=== PATIENT | female | born 1955 | race Caucasian/White ===

== ENCOUNTER 2018-08-28 20:08 | Inpatient (IN) | payer OTHER ==
[~2018-08-28] VITALS: Ht 165.1 cm; Wt 56.4 kg
--- NOTE | ~2018-08-28 | HC ---
[facility] [place] [address] CONSULTATION Name: KAMLA MATHEWS Room #: 244-P ADM IN M.R.#: [id number] Admission: 08/28/18 ������������������ Attend Phys: Mikey Gibbs MD Discharge: ������������������ Date of : 53 Report #: [id number] THIS REPORT FOR: //name// CC: FAM unknown Mikey Gibbs PULMONARY CONSULTATION REFERRAL PHYSICIAN: Dr. Ballard. REASON FOR REFERRAL: Respiratory failure. HISTORY OF PRESENT ILLNESS: The patient was transferred from [facility] with an apparent acute onset respiratory failure and GI bleed. A pulmonary consultation was requested. The patient was apparently found down at home by her son. She was seen on the floor in the bathroom. She was cyanotic, tachycardic, restless. 911 was called. She was taken to the Emergency Department. Initial arterial blood gas in the ED showed pH 7.02, pCO2 of 25, pO2 550. Prior to this, she had a recent onset of intermittent lower abdominal pain, nausea, vomiting. There was also history of diarrhea. Currently, she is status post EGD. She is arousable. She says she feels better. She notes that she had abdominal discomfort, which has improved. PAST MEDICAL HISTORY: Notable for COPD, tobacco abuse, hypertension, gastroesophageal reflux disease, hypothyroidism, chronic low back pain, hyperlipidemia, history of small-bowel obstruction undergone colon resection, history of nephrolithiasis, history of intra-abdominal sepsis and adhesions, history of gastric ulcer perforation, history of respiratory failure requiring intubation approximately 4 years ago. PAST SURGICAL HISTORY: As mentioned above including cholecystectomy, appendectomy, hysterectomy. ALLERGIES: WELLBUTRIN, WHICH CAUSES UPPER AIRWAY EDEMA AND VOMITING, CEPHALOSPORIN CAUSES SAME REACTION, CLONAZEPAM CAUSES LOSS OF BALANCE, CODEINE CAUSES VOMITING. HOME MEDICATIONS: Include DuoNebs, Advair 250 one puff twice a day, Synthroid, omeprazole, Flonase, multivitamins, hydrocodone, senna, potassium supplements, Spiriva, Diflucan, minocycline, metoprolol, Prozac, simvastatin. FAMILY HISTORY: Noncontributory. [facility] [address] [place] [address] CONSULTATION Name: KAMLA MATHEWS Room #: 244-P [facility] IN [facility].#: [id number] Admission: 08/28/18 ������������������ Attend Phys: Mikey Gibbs MD Discharge: ������������������ Date of : 53 Report #: [id number] SOCIAL HISTORY: The patient has smoked for many years, quit more than a year ago. She also smoked marijuana. She denies any alcohol use. REVIEW OF SYSTEMS: As mentioned above, otherwise 10-point system review negative. PHYSICAL EXAMINATION: GENERAL: She is awake, alert, in mild distress. VITAL SIGNS: Temperature is 99 degrees Fahrenheit, pulse is 120, blood pressure is 106/67 mmHg, respiratory rate 22, saturation 99%. HEENT: Normocephalic, atraumatic. NECK: Supple, without lymphadenopathy or thyromegaly. CHEST: Breath sounds are fairly clear. Air movements are decreased due to poor effort. CARDIOVASCULAR: Normal S1, S2. No murmurs or gallop. There is no JVD. There is no carotid bruit. Pulses are 2+/4+ bilaterally. ABDOMEN: Soft, mildly tender, no masses felt. GENITOURINARY AND RECTAL: Deferred. EXTREMITIES: There is no edema, cyanosis, or clubbing. NEUROLOGICAL: Grossly intact. LABORATORY DATA: Portable chest x-ray is clear. Lactic acid 2.6. CT abdomen and pelvis shows a fluid filled stomach, fluid filled small bowel. No evidence of pneumatosis or high grade obstruction, mild hydronephrosis on the right. Otherwise, no other significant findings. Urine drug screen was unremarkable. UA was unremarkable. Procalcitonin level is 22. EKG shows sinus tachycardia. Electrolytes: Initial creatinine is 1.6, followup is 0.9; sodium 141; potassium 3.6; chloride 109; CO2 is 20; BUN is 35; follow up bicarbonate 17. Initial arterial blood gas revealed pH 7.29, pCO2 29, pO2 171 on 5 liters of O2. WBC 18,300; hemoglobin 16.1 without any significant left shift. Albumin 2.6. IMPRESSION: 1. Recent nausea, vomiting, diarrhea, question of gastrointestinal bleed. Etiology unclear, but suspect possible viral syndrome. GI to see. There is also question of gastrointestinal bleed, though hemoglobin is 16.6. 2. Initial arterial blood gas performed at [facility] shows profound metabolic acidosis with a pH of 7.02. Followup arterial blood gas shows improved pH of 7.29. Repeat electrolytes show worsening metabolic acidosis, now bicarbonate 17. There is mild anion gap. 3. History of chronic obstructive pulmonary disease, history of tobacco use. No obvious evidence of bronchospasm. Continue bronchodilators. She is apparently on chronic O2 at home. 4. Hypertension. 5. Gastroesophageal reflux disease. 6. Hypothyroidism. 7. Chronic back pain. [facility] [address] [place] [address] CONSULTATION Name: KAMLA MATHEWS Room #: 244-P [facility] IN M.R.#: [id number] Admission: 08/28/18 ������������������ Attend Phys: Mikey Gibbs MD Discharge: ������������������ Date of : 53 Report #: [id number] 8. Past history of bowel obstruction, status post bowel resection remotely. RECOMMENDATIONS: We will initiate bronchodilators, wean O2 for saturation of 90%. Currently, the patient is being evaluated by the GI. DVT and GI prophylaxis recommended. IV fluids. With leukocytosis, transient hypotension, organ dysfunction including severe metabolic acidosis, the patient does meet the criteria for severe sepsis; however, she appeared to have responded well to IV fluids, IV bicarbonate. I think it is reasonable to hold off on sepsis protocol at this time. Continue IV bicarbonate, IV fluids and monitor urine output closely. Thank you for this consultation. ��������������������������������������������� ���������������������������������������� By: ��������������������������������������������� 07 0450 Singh Wagoner MD /nt
[~2018-08-28 20:08] MED LIST: ACETAMINOPHEN325 M1 PO; ADVAIR 250-501 EACH INH; ALBUTEROL2.5 MG/0.5 INH; ALBUTEROL2.5 MG/31 INH; ALDACTONE25 MG PO; ASPIRIN81 M2; CENTRUM SILVER1 EAC4 PO; COLACE100 MG PO; COMBIVENT RESPIM4 GM INH; DIFLUCAN200 MG PO; FLAGYL500 MG PO; FLONASE16 GM NASAL; LEVAQUIN 500 M500 M2 PO; LEVOTHYROXIN0.112 M1 PO; MAGNESIUM OXID400 MG PO; METOPROLOL SUCC25 M1 PO; MINOCIN100 MG PO; NAPROSYN500 MG PO; NICOTINE TRANSD14 M1 TRANSDERM; NORCO 5-325 TA1 EACH PO; NYSTATIN 1100000 U/M PO; ONDANSETRON HCL4 M2; ONDANSETRON HCL4 M2 PO; POTASSIUM20 PO; PREDNISONE 10 M10 M1; PRILOSEC 20 MG20 MG PO; PROZAC 20 MG20 MG PO; PROZAC40 MG PO; SENOKOT-S1 TA1 PO; SPIRIVA INH; TRAMADOL 50 MG50 MG PO; TRAZODONE 150150 M1 PO; TUMS PO; VISTARIL 25 MG25 M1 PO; ZOCOR40 MG PO
--- NOTE | 2018-08-28 22:50 | NUR ---
63 Y/O FEMALE PT ADMITTED TO ICU A DIRECT ADMIT FROM [facility] VIA EMS WITH DX OF RESP FAILURE GI BLEED. CURRENTLY ON BIPAP. SINUS TACH PT ONLY REQUESTING ICE CHIPS. HAS A MOD AMT FOUL SMELLINGS STOOL ON CHUX. WILL CONT TO MONITOR.
[2018-08-28 23:12] VITALS: BP 103/56
[2018-08-28 23:27] VITALS: BP 120/78
[2018-08-28 23:28] LABS: BE(vivo) -10.9 mmol/L (-2 to +3); HCO3 13.9 mmol/L (22.0-26.0); PCO2 29.1 mmHg (35.0-45.0); PO2 171.7 mmHg (80.0-100.0); pH 7.296 (7.360-7.450)
[2018-08-28 23:42] VITALS: BP 100/79
[2018-08-28 23:59] VITALS: BP 116/74
[2018-08-29] VITALS (35 sets, daily range): BP systolic 85–144; BP diastolic 35–77
[2018-08-29 03:42] LABS: ALBUMIN 2.6 g/dL (3.4-5.0); CALCIUM 8.1 mg/dL (8.5-10.1); CREATININE 1.6 mg/dL (0.6-1.0); POTASSIUM 3.6 mmol/L (3.5-5.1); TOTAL BILIRUBIN 0.5 mg/dL (<0.1-1.0); TOTAL PROTEIN 5.5 g/dL (6.4-8.2)
[2018-08-29 05:11] LABS: HEMATOCRIT 49.7 % (37.0-47.0); HEMOGLOBIN 16.6 gm/dL (12.0-15.0); MCH 31.7 pg (26.0-34.0); MCHC 33.4 g/dL (28.0-37.0); MCV 94.8 fL (80.0-100.0); RBC 5.24 mil/uL (4.20-5.00); RDW 13.1 % (10.5-14.5); WBC 18.3 thou/uL (4.0-11.0)
--- NOTE | 2018-08-29 06:00 | NUR ---
PT IS AWAKE AND ALERT. VSS LUNGS ESS CLEAR. MONITOR SHOWS SINUS TACH LUNGS ESS CLEAR. O2 SAT 3 LITERS. PT HAD 2 LARGE PINK TINGED WATTERY LIQUID STOOLS. PROTONIX GTT INFUSING WENT TO CAT SCAN FOR CT OF ABD AND PELVIS LEMUEL FEW ICE CHIPS DENIES PAIN NOR NAUSEA. PT DID REFUSE TO WEAR BIPAP LAST NOCT. 800 CC UO THIS SHIFT. DR COREA GI CONSULTED THIS AM. WILL CONT TO MONITOR CLOSELY.
[2018-08-29 10:57] LABS: URINE BILIRUBIN NEGATIVE (Negative); URINE BLOOD 2+ (Negative); URINE CLARITY CLEAR; URINE COLOR YELLOW; URINE GLUCOSE-RANDOM* NEGATIVE (Negative); URINE KETONES NEGATIVE (Negative); URINE LEUKOCYTES-REFLEX NEGATIVE (Negative); URINE NITRITE-REFLEX NEGATIVE (Negative); URINE PROTEIN (DIPSTICK) NEGATIVE (Negative); URINE SPECIFIC GRAVITY >= 1.030 (1.005-1.035); URINE UROBILINOGEN 0.2 E.U./dl (0.2-1.0)
[2018-08-29 11:06] LABS: AMP/METHAMP Negative (Negative); BARBITURATES Negative (Negative); BENZODIAZEPINES Negative (Negative); COCAINE Negative (Negative); METHADONE Negative (Negative); OPIATES Negative (Negative); PCP Negative (Negative)
[2018-08-29 11:08] LABS: BACTERIA-REFLEX None Seen /HPF (None Seen); CASTS None Seen /LPF (None Seen); CRYSTALS None Seen /LPF (None Seen); SQUAMOUS 0-3 Few /LPF (0-3); URINE RBC 3-10 Few /HPF (0-2); URINE WBC-REFLEX None Seen /HPF (0-5)
--- NOTE | 2018-08-29 14:47 | NUR ---
CM ASSESSMENT: CASE OPENED FOR DC PLANNING. CLINICAL INFO REVIEWED. ADMITTED WITH GI BLD. EGD TODAY AND COLONOSCOPY TOMORROW PLANNED. MET WITH PT WHO IS ALERT AND ORIENTED X4. PT LIVES IN [place], [place]. IN HOUSE, 4 STEPS TO ENTER WITH RAIL, NO STEPS INSIDE. INDEPENDENT WITH ADLS AND IADLS, HAS VEHICLE AND DRIVES. 2 SONS AND HER MOTHER LIVE NEAR BY. PT HAS HOME O2 CONCNETRATOR AND PORTABLE CONCNETRATOR FROM [employer] AND NEBULIZER SHE OWNS. PCP IS LEW SIERRA. THERAPY EVALS PENDING. PT THINKS SHE WON'T NEED ANYTHING AT DC. CM AVAILABLE TO COORDINATE ANY DC NEEDS.
[2018-08-29 16:18] LABS: CALCIUM 7.3 mg/dL (8.5-10.1); CREATININE 0.9 mg/dL (0.6-1.0); POTASSIUM 4.3 mmol/L (3.5-5.1)
--- NOTE | 2018-08-29 17:10 | EKG ---
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 Officer: BERNARD WALKER : 1955 Requested By: Marlen López Order Number: [id number] MD: Yrn Chowdhury Measurements Intervals [place] Rate: 117 P: 77 [place]: 124 QRS: 18 QRSD: 73 T: 52 QT: 301 QTc: 420 Interpretive Statements Sinus tachycardia Nonspecific ST segment abnormality Compared to ECG 06/14/2013 06:50:37 Poor R wave progression no longer present ST and T wave abnormality is less pronounced Electronically Signed On 08-29-2018 17:10:41 CDT by Yrn Chowdhury [email or web address] ��������������������������������������������� <ELECTRONICALLY SIGNED> ���������������������������������������� By: Yrn Chowdhury MD, FACC ��������������������������������������������� 08/29/18 1710 1117 [id number] Yrn Chowdhury MD, [facility] /EPI
--- NOTE | 2018-08-29 18:17 | NUR ---
PATIENT ALERT AND ORIENTED X4, NO COMPLAINTS OF PAIN. 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 ON 2L NASAL CANNULA, TOLERATING CLEAR LIQUID DIET. KHAN PATENT AND DRAINING. PATIENT UPDATED ON THE PLAN OF CARE. BOWEL PREP STARTED AT 1800. NO SIGNS OF ACUTE DISTRESS NOTED AT THIS TIME. WILL CONTINUE TO MONITOR.
[2018-08-30] VITALS (19 sets, daily range): BP systolic 135–162; BP diastolic 65–87
[2018-08-30 05:17] LABS: HEMATOCRIT 35.8 % (37.0-47.0); MCH 31.5 pg (26.0-34.0); MCHC 34.3 g/dL (28.0-37.0); RBC 3.89 mil/uL (4.20-5.00); WBC 12.3 thou/uL (4.0-11.0)
[2018-08-30 05:22] LABS: HEMOGLOBIN 12.3 gm/dL (12.0-15.0)
[2018-08-30 05:23] LABS: CALCIUM 7.4 mg/dL (8.5-10.1); CREATININE 0.8 mg/dL (0.6-1.0)
[2018-08-30 05:27] LABS: POTASSIUM 3.3 mmol/L (3.5-5.1)
--- NOTE | 2018-08-30 05:30 | NUR ---
PT HAS SLEPT MOST OF NOCT. TOOK APPROX HALF OF HER BOWEL PREP. REFUSED TO TAKE ANYMORE. HAD APPROX 700 CC CLEAR WATERY LIQUID STOOL. 1200 CC URINE OUTPUT THIS SHIFT. REMAINS IN SINUS TACH. TEMP 99.2 PO LUNGS ESS CLEAR. O2 SAT 97 % ON 2 L NC. BATHED. NPO FOR COLONOSOCPY THIS AM. WILL CONT TO MONITOR.
--- NOTE | 2018-08-30 18:11 | NUR ---
PATIENT ALERT AND ORIENTED X4, NO COMPLAINTS OF PAIN. ON ROOM AIR, SHORTNESS OF BREATH WITH INCREASED ACTIVITY. 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 TOLERATING FULL LIQUID DIET, NO COMPLAINTS OF NAUSEA/VOMITING. KHAN REMOVED AT 1400. PATIENT WALKED HALLWAY WITH PHYSICAL THERAPY. UP WITH STANDBY ASSISTANCE. NO SIGNS OF DISTRESS NOTED, WILL CONTINUE TO MONITOR.
[2018-08-31] VITALS (10 sets, daily range): BP systolic 120–147; BP diastolic 57–76
--- NOTE | 2018-08-31 05:02 | NUR ---
PT AOX4. ON 2L NC AT NIGHT FOR SLEEP. NO RESP DISTRESS WHILE AT REST. C/O ABD PAIN, MEDICATED PER ORDERS. UP WITH STANDBY TO BATHROOM. PT CALLS APPROPIATELY. FALL PRECAUTIONS IN PLACE. NO COMPLAINS PRESENTLY. WILL CONTINUE TO MONITOR.
[2018-08-31 07:57] LABS: MCHC 35.1 g/dL (28.0-37.0); WBC 10.5 thou/uL (4.0-11.0)
[2018-08-31 07:59] LABS: HEMATOCRIT 33.1 % (37.0-47.0); HEMOGLOBIN 11.6 gm/dL (12.0-15.0); MCH 32.1 pg (26.0-34.0); MCV 91.6 fL (80.0-100.0); PLATELET COUNT 170 thou/uL (150-400); RBC 3.61 mil/uL (4.20-5.00); RDW 13.4 % (10.5-14.5)
[2018-08-31 08:01] LABS: HCO3 24.1 mmol/L (22.0-26.0); PCO2 33.6 mmHg (35.0-45.0); pH 7.474 (7.360-7.450); sO2 97.1 % (92.0-98.0)
[2018-08-31 08:06] LABS: CALCIUM 7.7 mg/dL (8.5-10.1); CREATININE 0.6 mg/dL (0.6-1.0); POTASSIUM 3.3 mmol/L (3.5-5.1)
[2018-08-31 10:45] LABS: ABSOLUTE NEUTROPHILS 8.9 thou/uL (1.4-8.2); METAMYELOCYTES 3 %
[2018-08-31 10:46] LABS: PLATELET ESTIMATE NORMAL
[2018-08-31] MEDS ORDERED: PREDNISONE 20 M20 M1 PO (14:31)
[2018-08-31] MEDS ORDERED: LEVAQUIN 500 M500 M1 PO (14:31)
--- NOTE | 2018-08-31 15:27 | NUR ---
PT. DISCHARGING TODAY TO HOME WITH HH. NOTIFIED [facility] AND FAXED REFERRAL AND THEY WILL BE ABLE TO ACCEPT PT. FOR HH. FAXED DC ORDERS/SUMMARY AND SPOKE WITH ANITA IN ADM. AND SHE WILL NOTIFY PT. OF TIME OF VISITS.
--- NOTE | 2018-08-31 15:49 | NUR ---
PATIENT ALERT AND ORIENTED X4, NO COMPLAINTS OF PAIN. ON ROOM AIR. UP INDEPENDENTLY. IV REMOVED. PRESCRIPTIONS GIVEN, DISCHARGE INSTRUCTIONS DISCUSSED ALONG WITH FOLLOW UP APPOINTMENTS. NO SIGNS OF ACUTE DISTRESS NOTED AT THIS TIME. PATIENT TRANSPORTED BY STAFF TO RIDE HOME WITH FAMILY.
--- NOTE | 2018-09-01 10:06 | PATH ---
[facility] [place] [address] PATHOLOGY RPT PROCEDURE Name: CASIE BROWN Room #: 244-P [facility] IN M.R.#: [id number] ������������������ Admission: 08/28/18 ������������������ Date of : 53 Discharge: 08/31/18 Report #: [id number] Path Case #: [id number] [facility] Accession Number: [id number] . 01 Material submitted: . PART A: BX ILEUM INFLAMMATION PART B: BX POLYP SPLENIC FLEXURE . 01 Clinical history: . Preop DX: GI bleed Postop DX: Ileal inflammation, colon polyp, int hemorrhoids . 02 Diagnosis: A. Small bowel mucosa, ileal inflammation, endoscopic biopsy: - Focal ulceration, regenerative epithelial atypia as well as fibrotic lamina propria, favor ischemic changes (please see comment). - Negative for dysplasia or malignancy. . B. Polyp, splenic flexure, endoscopic biopsy: - Tubular adenoma. - Negative for high-grade dysplasia. (IUV:donnie; 08/31/2018) QMS/08/31/2018 . 02 Comment: Examination of the ileal inflammation shows focal surface ulceration, denuded surface epithelium, regenerative changes within the adjacent epithelium as well as crypts in addition to fibrosis within the lamina propria. The lamina propria in addition shows thrombi within the vessels. Acute cryptitis, crypt abscess formation, viral inclusions, or granulomatous inflammation are not identified within this biopsy tissue. Overall findings are highly suggestive of ischemic ileitis and inflammatory bowel disease or infectious inflammation are less likely due to the lack of features supporting the same. Please note, pseudomembranous colitis enters the differential diagnosis as well. There is no dysplasia or malignancy present within this biopsy tissue. Correlate clinically and follow up as inidicated. (IUV:donnie; 08/31/2018) . 02 Electronically signed: . Gilda Nolan MD, Pathologist NPI- [id number] . 01 Gross description: . A. Received in formalin labeled "Casie Brown, BX ileal inflammation," are three segments of rizzo soft tissue measuring 0.5 x 0.3 x 0.2 cm in aggregate dimensions and measuring 0.3 cm each [place] [address] PATHOLOGY RPT PROCEDURE Name: CASIE BROWN Room #: 244-P DIS IN M.R.#: [id number] ������������������ Admission: 08/28/18 ������������������ Date of : 53 Discharge: 08/31/18 Report #: [id number] Path Case #: [id number] specimen is submitted entirely in cassette A1. . B. Received in formalin labeled "Casie Brown, BX polyp splenic flexure," are four segments of rizzo soft tissue measuring 0.6 x 0.5 x 0.3 cm in aggregate dimensions and ranging from 0.3 to 0.4 cm in maximum dimension. The specimen is submitted entirely in cassette B1. ([facility]; 08/30/2018) XDC/XDC . 02 Pathologist provided ICD-10: K63.9, D12.3 . 02 CPT . 784450, 548226 Specimen Comment: A courtesy copy of this report has been sent to Specimen Comment: [phone], . Specimen Comment: Report sent to / DR HAQUE Specimen Comment: A duplicate report has been generated due to demographic updates. Performed at: [address] [facility], [place] [id number] MD Landon Hinton MD Phone: [phone] Performed at: [address] [facility] [id number] MD Gilda Nolan MD Phone: [phone]
--- NOTE | 2018-09-01 10:06 | PATH ---
[facility] [place] [address] PATHOLOGY RPT PROCEDURE Name: DEBORA BROWNOGGANESHGretchen Norris Room #: 244-P [facility] IN M.R.#: [id number] ������������������ Admission: 08/28/18 ������������������ Date of : 53 Discharge: 08/31/18 Report #: [id number] Path Case #: [id number] [facility] Accession Number: [id number] . 01 Material submitted: . PART A: DUODENUM BIOPSIES R/O CELIAC DISEASE PART B: ANTRUM BIOPSIES R/O H. PYLORI PART C: DISTAL ESOPHAGUS R/O CANO'S . 01 Clinical history: . Pre-OP DX: Melena, hematemesis, Hx gastric ulcer Post-OP DX: Gastritis, hiatal hernia, esophagitis . 02 Diagnosis: A. Small bowel mucosa, duodenum rule out celiac disease, endoscopic biopsy: - Mild focal acute and chronic inflammation, nonspecific. - Negative for villous blunting or increase in intraepithelial lymphocytes. . B. Gastric mucosa, antrum rule out H. pylori, endoscopic biopsy: - Moderate reactive gastropathy (resembling small bowel-type of villous architecture). - Negative for intestinal metaplasia or atrophy. - Negative for Helicobacter pylori (properly controlled immunohistochemical stain performed). . C. Gastroesophageal mucosa, distal esophagus rule out Cano's, endoscopic biopsy: - Gastric cardia-type mucosa with reactive changes and moderate dense chronic inflammation. - Negative for intestinal metaplasia or dysplasia. - Squamous mucosa with mild esophagitis and changes compatible with reflux esophagitis. (IUV:pit 08/30/2018) QTP/08/30/2018 . 02 Electronically signed: . Gilda Nolan MD, Pathologist NPI- [id number] . 01 Gross description: . A. Received in formalin labeled "Casie Brown, duodenum biopsies, rule out celiac," is a single segment of rizzo soft tissue measuring 0.3 cm in maximum dimension. The specimen is entirely submitted in cassette A1. After filtration of the specimen container, no additional tissue was recovered. [address] [address] PATHOLOGY RPT PROCEDURE Name: CASIE BROWN Room #: 244-P [facility] IN M.R.#: [id number] ������������������ Admission: 08/28/18 ������������������ Date of : 53 Discharge: 08/31/18 Report #: [id number] Path Case #: [id number] . B. Received in formalin labeled "Kevin, Louetta, antrum biopsies," is a single segment of rizzo soft tissue measuring 0.5 cm in maximum dimension. The specimen is entirely submitted in cassette B1. After filtration of the specimen container, no additional tissue was recovered. . C. Received in formalin labeled "Kevin, Louetta, distal esophagus, rule out Cano's," are 3 segments of rizzo soft tissue measuring 0.4 x 0.3 x 0.1 cm in aggregate dimensions and ranging from 0.1 to 0.2 cm in maximum dimension. The specimen is submitted entirely in cassette C1. ([facility]; 08/29/2018) TOB/TOB . 02 Pathologist provided ICD-10: K29.80, K31.9, K29.50, K21.0 . 02 CPT . 421499, 454301, 081823, X67811 Specimen Comment: A courtesy copy of this report has been sent to Specimen Comment: [phone], . Specimen Comment: Report sent to / DR HAQUE Specimen Comment: A duplicate report has been generated due to demographic updates. Performed at: [address] [facility], [place] [id number] MD Landon Hinton MD Phone: [phone] Performed at: [address] [facility] [id number] MD Gilda Nolan MD Phone: [phone]
== END 2018-08-31 15:50 | disposition home health service (06) | DRG 871 ==
LOC: 2N 20:08 → ICU 23:07
PROVIDERS: Hospitalist; Internal Medicine Pulmonary Disease; Nurse Practitioner Family; Pediatrics; ADMIT Internal Medicine
PROC: 0DBL8ZZ Excision of Transverse Colon, Via Natural or Artificial Opening Endoscopic (ICD-10-PCS; principal; 2018-08-30)
PROC: 0DBB8ZX Excision of Ileum, Via Natural or Artificial Opening Endoscopic, Diagnostic (ICD-10-PCS; principal; 2018-08-30)
PROC: 0DB98ZX Excision of Duodenum, Via Natural or Artificial Opening Endoscopic, Diagnostic (ICD-10-PCS; principal; 2018-08-30)
PROC: 0DB68ZX Excision of Stomach, Via Natural or Artificial Opening Endoscopic, Diagnostic (ICD-10-PCS; principal; 2018-08-30)
PROC: 0DB38ZX Excision of Lower Esophagus, Via Natural or Artificial Opening Endoscopic, Diagnostic (ICD-10-PCS; principal; 2018-08-30)
DX: A41.9 Sepsis, unspecified organism (principal); J96.21 Acute and chronic respiratory failure with hypoxia; J96.22 Acute and chronic respiratory failure with hypercapnia; K29.71 Gastritis, unspecified, with bleeding; J18.9 Pneumonia, unspecified organism; K22.11 Ulcer of esophagus with bleeding; N17.9 Acute kidney failure, unspecified; J44.0 Chronic obstructive pulmonary disease with (acute) lower respiratory infection; K63.3 Ulcer of intestine; I10 Essential (primary) hypertension; K21.9 Gastro-esophageal reflux disease without esophagitis; E03.9 Hypothyroidism, unspecified; M54.5 Low back pain; E78.5 Hyperlipidemia, unspecified; F12.90 Cannabis use, unspecified, uncomplicated; K63.5 Polyp of colon; K64.8 Other hemorrhoids; K63.89 Other specified diseases of intestine; D64.9 Anemia, unspecified; K20.9 Esophagitis, unspecified; F41.9 Anxiety disorder, unspecified; G89.4 Chronic pain syndrome; K44.9 Diaphragmatic hernia without obstruction or gangrene; Z87.442 Personal history of urinary calculi; Z90.49 Acquired absence of other specified parts of digestive tract; Z90.710 Acquired absence of both cervix and uterus; Z88.6 Allergy status to analgesic agent; Z88.8 Allergy status to other drugs, medicaments and biological substances; Z87.891 Personal history of nicotine dependence; Z79.899 Other long term (current) drug therapy
CPT/HCPCS: 10078; 62110; 62900; 70005

== ENCOUNTER 2018-09-26 13:52 | Inpatient (IN) | payer OTHER ==
[~2018-09-26] VITALS: Ht 165.1 cm; Wt 56.7 kg
[2018-09-26 12:40] VITALS: BP 112/60
[~2018-09-26 13:52] MED LIST changes: +LEVAQUIN 500 M500 M1 PO; +PREDNISONE 20 M20 M1 PO
--- NOTE | 2018-09-26 13:57 | NUR ---
PT ARRIVED ABOUT AN HOUR PRIOR, UNABLE TO PULL UP D/T ADMISSION AND REPEATED PHONE CALLS. VISITED BY DR. PAULSON. PT STATES SHE'S BEEN HURTING IN HER ABDOMEN, CRAMPS/SORE, FOR 30+ DAYS, HAD DIARRHEA FIVE DAYS AGO, NOW LAST THREE DAYS IS SOFT VERY SMALL STOOL. LITTLE APPETITE, CL DIET FOR NOW, HAS IV AND IVF, RA, WEARS 2L HS W/BUBBLER, WILL DO ADMIT AND CALL PHYSICIAN RE: MEDS AND STATUS. A&0X4, UP AD LINDA, BSC, STOOL NEEDED, WILL CONTINUE TO MONITOR
[2018-09-26] MEDS ORDERED: CALCIUM 500 +1 EAC5 PO (14:24)
[2018-09-26] MEDS ORDERED: CIPRO500 MG PO (14:25)
[2018-09-26] MEDS ORDERED: COMBIVENT RESPIM4 GM INH (14:28)
[2018-09-26] MEDS ORDERED: FLAGYL500 M1 PO (14:29)
[2018-09-26] MEDS ORDERED: POTASSIUM20 PO (14:30)
[2018-09-26 14:57] LABS: HEMOGLOBIN 11.8 gm/dL (12.0-15.0); MCH 31.5 pg (26.0-34.0); MCHC 33.8 g/dL (28.0-37.0); MCV 93.3 fL (80.0-100.0); RBC 3.75 mil/uL (4.20-5.00); RDW 14.4 % (10.5-14.5); WBC 22.1 thou/uL (4.0-11.0)
[2018-09-26 15:00] VITALS: BP 113/63
[2018-09-26 15:06] LABS: CALCIUM 7.3 mg/dL (8.5-10.1); CREATININE 0.7 mg/dL (0.6-1.0); POTASSIUM 3.5 mmol/L (3.5-5.1)
[2018-09-26 15:12] LABS: ALBUMIN 2.3 g/dL (3.4-5.0); TOTAL BILIRUBIN 0.3 mg/dL (<0.1-1.0); TOTAL PROTEIN 4.9 g/dL (6.4-8.2)
[2018-09-26 18:58] LABS: URINE BILIRUBIN NEGATIVE (Negative); URINE BLOOD NEGATIVE (Negative); URINE CLARITY CLEAR; URINE COLOR YELLOW; URINE GLUCOSE-RANDOM* NEGATIVE (Negative); URINE KETONES 1+ (Negative); URINE LEUKOCYTES NEGATIVE (Negative); URINE NITRITE NEGATIVE (Negative); URINE PROTEIN (DIPSTICK) NEGATIVE (Negative); URINE UROBILINOGEN 0.2 E.U./dl (0.2-1.0)
[2018-09-26 19:52] VITALS: BP 121/65
[2018-09-27 05:02] VITALS: BP 110/59
[2018-09-27 05:44] LABS: HEMATOCRIT 33.2 % (37.0-47.0); HEMOGLOBIN 11.4 gm/dL (12.0-15.0); MCH 32.2 pg (26.0-34.0); MCHC 34.2 g/dL (28.0-37.0); RBC 3.53 mil/uL (4.20-5.00); RDW 14.7 % (10.5-14.5); WBC 17.5 thou/uL (4.0-11.0)
--- NOTE | 2018-09-27 06:00 | NUR ---
Pt. rested quietly at intervals during the night when checked on during frequent rounds. She has been given pain meds for c/o abdominal pain (see emar) with some relief noted. No c/o nausea.
[2018-09-27 07:49] VITALS: BP 114/55
--- NOTE | 2018-09-27 14:05 | NUR ---
PT ADMITTED RELATED TO ABD TENDERNESS >30 DAYS. CM REVIEWED CHART AND SPOKE WITH CARE TEAM. CM MET WITH PT AT BEDSIDE THIS DAY. PT IS A&O X4.CM ROLE INTRODUCED. PT INDICATED SHE LIVES ALONE IN A HOUSE WITH 4-5 STEPS TO ENTER WITH HANDRAILS AND NO STEPS INSIDE. 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 PT INDICATED SHE HAS HOME O2 THROUGH [employer]. PT INDICATED SHE PLANS TO RETURN HOME ONCE MEDICALLY STABLE. SHE INDICATED SHE HAS HAD [facility] IN THE PAST AND THAT SHE HAD A SHOWER CHAIR AND A FWW IS SHE NEEDS THEM UPON DC. CM TO FOLLOW INDICATED WITH DC PLANNING.
[2018-09-27 14:15] VITALS: BP 108/59
--- NOTE | 2018-09-27 18:19 | NUR ---
PT VS STABLE THROUGHOUT SHIFT. PT HAD CTA WHICH SHE TOLERATED WELL. C/O PAIN WHICH WAS ADDRESSED WITH MEDICATION. PT RESTING COMFORTABLY, TOLERATING CLEAR LIQUIDS WELL.
[2018-09-27 20:05] VITALS: BP 111/65
[2018-09-27 20:45] VITALS: BP 111/65
[2018-09-28 03:30] VITALS: BP 116/71
--- NOTE | 2018-09-28 04:33 | NUR ---
Pt. rested quietly at intervals during the night when checked on during frequent rounds. She offers no c/o pain currently.
[2018-09-28 05:33] LABS: HEMATOCRIT 32.8 % (37.0-47.0); HEMOGLOBIN 11.6 gm/dL (12.0-15.0); MCH 33.1 pg (26.0-34.0); MCHC 35.2 g/dL (28.0-37.0); RBC 3.49 mil/uL (4.20-5.00); RDW 14.6 % (10.5-14.5); WBC 9.2 thou/uL (4.0-11.0)
[2018-09-28 05:47] LABS: CALCIUM 7.1 mg/dL (8.5-10.1); CREATININE 0.6 mg/dL (0.6-1.0); PHOSPHORUS 2.8 mg/dL (2.5-4.9); POTASSIUM 3.2 mmol/L (3.5-5.1)
--- NOTE | 2018-09-28 06:30 | NUR ---
Pt. arrived to the unit from the emergency room accompanied by spouse and er nurse. Pt. oxygen saturation was at 87% on 6 liters per nasal canula and RT was called. Oxygen was increased to 7 liters. Bp-low and er nurse removed nitropaste patch. Pt. is alert and oriented. She offers no complaints. Spouse at the bedside.
[2018-09-28 07:27] VITALS: BP 111/69
--- NOTE | 2018-09-28 10:30 | NUR ---
TOWARDS POC PT A/O X4, VSS, AFEBRILE, DENIES PAIN. ISO DC'D. NO CONCERNS VOICED, WILL CONTINUE TO MONITOR.
[2018-09-28 19:07] VITALS: BP 108/55
[2018-09-29 05:02] VITALS: BP 116/55
[2018-09-29 07:25] VITALS: BP 133/70
--- NOTE | 2018-09-29 07:29 | NUR ---
Assumed care at 1845. Pt resting in bed. VSS. AOX4. No identified needs at the moment. Call light within reach. Will continue to monitor.
[2018-09-29 13:40] VITALS: BP 121/68
[2018-09-29 19:13] VITALS: BP 131/59
--- NOTE | 2018-09-30 01:42 | NUR ---
Assumed care of pt at 1900. Pt alert and oriented x4. Pain controlled with prn pain meds. No other complaints at this time. Call light within reach. Will continue to monitor and assist with needs.
[2018-09-30 03:30] VITALS: BP 106/62
[2018-09-30 05:10] LABS: DIRECT BILIRUBIN < 0.1 mg/dL (<0.1-0.3); SGOT 19 U/L (15-37); SGPT 22 U/L (30-65); TOTAL BILIRUBIN 0.1 mg/dL (<0.1-1.0); TOTAL PROTEIN 4.7 g/dL (6.4-8.2)
[2018-09-30 07:04] VITALS: BP 113/62
--- NOTE | 2018-09-30 08:28 | NUR ---
ASSUMED CARE OF PT AROUND 0715, C/O PAIN LATER IN A.M., ADM PAIN MEDS W/CRACKERS AND PEANUT BUTTER. MENTIONS THAT SHE MAY BE D/C'D TO DO AN O/P PROCEDURE AT ANOTHER HOSPITAL, NO ORDERS. RA, WEARS 2L 02 AT HOME AT NIGHT, WEARS IT HERE DEPENDING ON NEEDS. USES CALL LIGHT FOR NEEDS. AMB STEADY. WILL CONTINUE TO MONITOR
--- NOTE | 2018-09-30 12:42 | NUR ---
OPR PROVIDED PATENCY PILL CAMERA FOR USE TO USE. GI WILL ADMINISTER IT THIS DAY AND RESULTS WILL NOT BE AVAIABLE UNTIL WEDNESDAY. PT TO REMAIN HER UNTIL THEM. CM TO FOLLOW INDICATED WITH DC PLANNING.
[2018-09-30 15:51] VITALS: BP 110/57
[2018-09-30 19:41] VITALS: BP 116/56
--- NOTE | 2018-10-01 02:32 | NUR ---
PT SLEPT MOST OF THE NIGHT PT IS UP AD LINDA PT USED CALL LIGHT EFFECTIVELY PT NPO FOR PROCEDURE WEDNESDAY.
[2018-10-01 04:26] VITALS: BP 107/62
--- NOTE | 2018-10-01 05:09 | NUR ---
PT JUST ARRIVED FROM [facility] AT AROUND 0455. ACTIVE AND MOVING AROUND. CONGESTED AND NON PRODUCTIVE COUGH. SET UP SO SHE CAN HAVE A SHOWER. USES OXYGEN 2L PER NC ONLY NEEDED. DENIES PAIN. VOIDING OK. SMALL BM REPORTED A WHILE AGO-LOOSE. PT IS NOT ON ISOLATION.NPO SINCE MID[place] FOR CAM STUDY TODAY.PLEASNT AND COOPEARTIVE. WILLL CONTINUE WITH POC TILL EOS.
[2018-10-01 05:22] VITALS: BP 99/57
--- NOTE | 2018-10-01 07:57 | NUR ---
RECEIVED PT APPROX 0715. A/O. DENIES PAIN. NO SOA. NO NV. NPO FOR GI STUDY TODAY. PT RESTING IN BED NO CONCERNS VOICED. WILL CONT. TO MONITOR.
[2018-10-01 08:29] VITALS: BP 107/58
--- NOTE | 2018-10-01 09:24 | NUR ---
SPOKE WITH PATIENT AT 0900, SHE IS AWARE AND VERBALLY CONSENTS TO SWALLOWING PATENCY CAPSULE AT 0910, REVEIWED DIET ORDERS OF WHEN TO RESUME CLEAR LIQUIDS 1100, LIGHT MEAL AT 1300, AND PATIENTS REGULAR DIET AT 1700, DISCUSSED WITH PATIENT AND RN IN CHARGE OF PATIENTS CARE TODAY THE IMPORTANCE OF HAVING THE KUB TOMORROW 10/02/18 AT 1500, ALSO CALLED AND SPOKE WITH RADIOLOGY ABOUT ORDERS FOR KUB TO BE DONE, ORDER FOR KUB TO BE PLACED, DISCUSSED S/S WITH PATIENT, WILL CONT POC
[2018-10-01 16:15] VITALS: BP 105/55
[2018-10-01 19:45] VITALS: BP 125/61
[2018-10-02 04:44] VITALS: BP 110/63
--- NOTE | 2018-10-02 05:25 | NUR ---
PT AMBULATING TO BATHROOM INDEPENDNETLY AND IS TOLERATING WELL. DENIES PAIN. RESTING COMFORTABLY. NO NEEDS VOICED. CALL LIGHT WITHIN REACH. WILL CONTINUE TO PROVIDE FREQUENT OBSERVATION.
[2018-10-02 07:52] VITALS: BP 119/62
[2018-10-02 11:28] VITALS: BP 108/78
--- NOTE | 2018-10-02 12:10 | NUR ---
ASSUMED PATIENT CARE AT 0700. A/O X4. AMBULATED IN HALLWAY. JOSE MANUEL BUTTS, NO N/V. WILL HAVE KUB AT 1500. TRANSFER PATIENT TO [facility].
--- NOTE | 2018-10-02 18:11 | NUR ---
PT ARRIVED FROM 4E THIS SHIFT AT APPROX 1100; PT IN STABLE CONDITION SINCE ARRIVING ON UNIT; NO S/SX OF ACUTE DISTRESS; PT IS AX0 X 4; PT IS UP AD LINDA; KUB COMPLETED THIS SHIFT; FOLLOWING POC ORDERED; WILL CONT. TO MONITOR
[2018-10-02 18:58] VITALS: BP 130/58
--- NOTE | 2018-10-03 05:20 | NUR ---
PATIENT ALERT AND ORIENTED X4. C/O PAIN IN ABD OF 1. NO MED GIVEN. UP IN ROOM. SLEPT OFF AND ON DURING NIGHT.
[2018-10-03] MEDS ORDERED: MIRALAX17 GM PO (09:18)
[2018-10-03] MEDS ORDERED: BUDESONIDE EC3 MG PO (09:18)
[2018-10-03] MEDS ORDERED: SYNTHROID125 MC1 PO (09:18)
[2018-10-03 09:43] VITALS: BP 118/67
[2018-10-03 11:44] VITALS: BP 118/67
--- NOTE | 2018-10-03 11:47 | NUR ---
DISCHARGE NOTE: SW reviewed chart and spoke with nursing and attending physician. Pt was [facility] to [facility] and is medically stable for discharge home today. Pt's family to provide transportation home. No SW interventions identified at this time, but is available to assist should needs arise.
--- NOTE | 2018-10-03 11:58 | NUR ---
ASSUMED CARE OF PATIENT AT 0715, PATIENT ALERT AND ORIENTED X 4. PATIENT UP AD LINDA. PATIENT DENIES PAIN THIS AM. PATIENT HAD RIGHT FOREARM IV IN PLACE, REMOVED THIS AM DUE TO PATIENT BEING DISCHARGED. RECEIVED ORDER FOR DISCHARGE TO HOME WITH SELF CARE. PATIENT SLIGHTLY UPSET DUE TO NOT KNOWING IS STILL MEDICALLY GOING ON. ALL DISCHARGE PAPERWORK SENT WITH THE PATIENT AND ALL PERSONAL BELONGINGS SENT WITH THE PATIENT.
== END 2018-10-03 12:07 | disposition home or self-care (01) | DRG 871 ==
LOC: 4W 13:52 → 4E 10-01 05:01 → SICU 10-02 11:24
PROVIDERS: Hospitalist; Internal Medicine Gastroenterology; ADMIT Hospitalist
DX: A41.9 Sepsis, unspecified organism (principal); J96.21 Acute and chronic respiratory failure with hypoxia; J18.9 Pneumonia, unspecified organism; N17.9 Acute kidney failure, unspecified; J44.0 Chronic obstructive pulmonary disease with (acute) lower respiratory infection; K29.70 Gastritis, unspecified, without bleeding; K44.9 Diaphragmatic hernia without obstruction or gangrene; I10 Essential (primary) hypertension; K52.9 Noninfective gastroenteritis and colitis, unspecified; F41.9 Anxiety disorder, unspecified; K63.89 Other specified diseases of intestine; E78.5 Hyperlipidemia, unspecified; K21.0 Gastro-esophageal reflux disease with esophagitis; E03.9 Hypothyroidism, unspecified; G89.4 Chronic pain syndrome; Z90.49 Acquired absence of other specified parts of digestive tract; Z88.8 Allergy status to other drugs, medicaments and biological substances; Z88.5 Allergy status to narcotic agent; Z79.899 Other long term (current) drug therapy; Z90.710 Acquired absence of both cervix and uterus; Z87.442 Personal history of urinary calculi; Z87.891 Personal history of nicotine dependence
CPT/HCPCS: 10040; 10045; 10084; 15002

== ENCOUNTER 2018-10-09 13:13 | Inpatient (IN) | payer OTHER ==
[~2018-10-09] VITALS: Ht 165.1 cm; Wt 56.7 kg
[~2018-10-09 13:13] MED LIST changes: +BUDESONIDE EC3 MG PO; +CALCIUM 500 +1 EAC5 PO; +CIPRO500 MG PO; +FLAGYL500 M1 PO; +MIRALAX17 GM PO; +SYNTHROID125 MC1 PO
[2018-10-09 16:26] VITALS: BP 109/55
--- NOTE | 2018-10-09 16:44 | NUR ---
ADMISSION ASSESMENT COMPLETED. VSS. A/O. C/O PAIN. NO NOTED SOA. NO NV. PT RESTING IN BED. UP AD LINDA. IVF INFUSING. WILL CONT, TO MONITOR.
[2018-10-09 16:49] LABS: HEMATOCRIT 37.1 % (37.0-47.0); HEMOGLOBIN 12.2 gm/dL (12.0-15.0)
[2018-10-09] MEDS ORDERED: SYNTHROID100 MC1 PO (18:16)
[2018-10-09] MEDS ORDERED: POTASSIUM20 PO (18:17)
[2018-10-09] MEDS ORDERED: CALCIUM 600 +1 EAC1 PO (18:18)
[2018-10-09 19:40] VITALS: BP 105/56
[2018-10-10 02:36] LABS: HEMATOCRIT 33.7 % (37.0-47.0); HEMOGLOBIN 11.2 gm/dL (12.0-15.0); MCH 31.4 pg (26.0-34.0); MCHC 33.2 g/dL (28.0-37.0); MCV 94.4 fL (80.0-100.0); RBC 3.57 mil/uL (4.20-5.00); WBC 18.2 thou/uL (4.0-11.0)
[2018-10-10 02:49] LABS: PROTIME 10.1 Seconds (9.3-11.4)
--- NOTE | 2018-10-10 04:51 | NUR ---
PT AMBULATING TO BATHROOM INDEPENDENTLY AND IS TOLERATING WELL. FENTANYL PROVIDING PAIN RELIEF. DENIES NAUSEA. RESTING COMFORTABLY. NO NEEDS VOICED. CALL LIGHT WITHIN REACH. WILL CONTINUE TO PROVIDE FREQUENT OBSERVATION.
[2018-10-10 05:00] VITALS: BP 112/58
[2018-10-10 08:03] VITALS: BP 111/57
--- NOTE | 2018-10-10 09:03 | NUR ---
PATIENT ARRIVED TO SENIOR SUITES AT 0818.PATIENT CAME TO UNIT WITH NO IV.NO MEDS WERE GIVEN AT THIS TIME.ASSESSMENT AND VITALS WERE DONE.PT IS ABLE TO AMBULATE ON HER OWN.PT IS ON A CLEAR LIQUID DIET.PT WAS ORIENTED TO ROOM AND GIVEN A PATIENT PACKET.CALL LIGHT, SIDE TABLE AND PERSONAL BELONGINGS ARE WITHIN REACH.
[2018-10-10 09:15] VITALS: BP 117/66
[2018-10-10] MEDS ORDERED: BUDESONIDE EC3 MG PO (09:35)
[2018-10-10 18:41] VITALS: BP 126/69
--- NOTE | 2018-10-11 04:51 | NUR ---
PATIENT ALERT AND ORIENTED X4. UP AD LINDA. NPO SINCE SC FOR AN EGD TODAY. DENIES PAIN. SLEPT MOST OF THE NIGHT.
[2018-10-11 06:25] LABS: HEMATOCRIT 38.2 % (37.0-47.0); HEMOGLOBIN 12.6 gm/dL (12.0-15.0)
[2018-10-11 06:36] LABS: ALBUMIN 2.8 g/dL (3.4-5.0); CALCIUM 8.5 mg/dL (8.5-10.1); CREATININE 0.7 mg/dL (0.6-1.0); POTASSIUM 3.9 mmol/L (3.5-5.1); TOTAL BILIRUBIN 0.3 mg/dL (<0.1-1.0); TOTAL PROTEIN 6.5 g/dL (6.4-8.2)
[2018-10-11 07:59] VITALS: BP 119/59
--- NOTE | 2018-10-11 14:19 | NUR ---
INITIAL ASSESSMENT: SW reviewed chart and opened case due to length of stay. Pt was recently discharged home from [facility] on 10/03. Pt admitted from home due to GI bleed. Pt had EGD earlier today per GI. Pt currently off the unit, ambulating independently with family. Per prior admission, pt is alert/orientated x 4. Pt lives at home alone. Has 4-5 steps to enter the home and no steps inside. Pt has a walker to assist with ambulation. Has used [facility] in the past. Pt has home O2 in place through [facility]. Plan is for pt to discharge home when medically stable. SW is following to assist as needed with discharge planning.
--- NOTE | 2018-10-11 19:37 | NUR ---
ASSUMED CARE OF PATIENT AT 0715, PATIENT ALERT AND ORIENTED X 4, PATIENT UP AD LINDA, AMBULATES IN HALLWAYS. PATIENT NPO THIS AM FOR EGD DONE THIS AFTERNOON, NO FINDINGS, BUT BIOPSIES DONE FOR CELIAC. PAIENT SWALLOW CAMERA PILL THIS EVENING, HAS BELT IN PLACE UNTIL 1200AM. PAIENT STARTED CLEAR LIQUIDS AT 1800, AND CAN HAVE LIGHT MEAL AT 2000. PATIENT DENIES PAIN THIS SHIFT, NO N/V REPORTED. PATIENT HAS LEFT FOREARM IV IN PLACE WITH NS AT 100CC/HR, AND RECEIVES IV ANTIOBIOTIC SCHEDULED. NO BM THIS SHIFT, VOISING W/O DIFICULTY. WILL CONTINUE TO MONITOR.
[2018-10-11 20:14] VITALS: BP 132/77
--- NOTE | 2018-10-12 03:32 | NUR ---
Assumed pt care at 1900. Pt A/OX4,pleasant.VSS. Complained of abd pain r/t GI belt medicated with [place] with relief reported. The GI belt was removed at midnight as instructed. Denies N/V. IVF infusing without any problems. Call light/personal items placed within reach will continue to monitor pt.
[2018-10-12 08:01] VITALS: BP 122/68
--- NOTE | 2018-10-12 11:55 | NUR ---
SW reviewed chart and spoke with nursing and attending physician. Pt had M2 capsule study and may discharge home later today. Awaiting final discharge orders at this time. [facility] is following to assist as needed with discharge planning.
--- NOTE | 2018-10-12 16:06 | PATH ---
[facility] [address] [place] [address] PATHOLOGY RPT PROCEDURE Name: KAMLA MATHEWS Room #: 223-P ADM IN M.R.#: [id number] ������������������ Admission: 10/09/18 ������������������ Date of : 53 Discharge: Report #: [id number] Path Case #: [id number] [facility] Accession Number: [id number] . 01 Material submitted: . small bowel - BX SMALL BOWEL R/O CELIAC DZ . 01 Clinical history: . Pre-OP DX: Recurrent abdominal pain, nausea, vomiting, abnormal CT Post-OP DX: Same as pre . 02 Diagnosis: Small bowel mucosa, small bowel R/O celiac disease, endoscopic biopsy: - No diagnostic abnormalities present. - Negative for villous blunting or increase in intraepithelial lymphocytes. (IUV:odnnie; 10/12/2018) QMS/10/12/2018 . 02 Electronically signed: . Gilda Nolan MD, Pathologist NPI- [id number] . 01 Gross description: . Received in formalin labeled "Kevin, [place], BX small bowel, rule out celiac," are 2 segments of rizzo soft tissue measuring 0.7 x 0.3 x 0.2 cm in aggregate dimensions and ranging from 0.3 to 0.4 cm in maximum dimension. The specimen is submitted entirely in cassette A1. (TSD; 10/11/2018) TOB/TOB . 02 Pathologist provided ICD-10: R10.9, R11.0, R11.10 . 02 CPT . 379033 Specimen Comment: A courtesy copy of this report has been sent to Specimen Comment: [phone], , . Specimen Comment: Report sent to ,DR BLACKWELL / DR PAULSON Performed at: [address], [place], [place] [id number] MD Landon Hinton MD Phone: [phone] Performed at: [address] [id number] MD Gilda Nolan MD Phone: [phone]
--- NOTE | 2018-10-12 18:06 | NUR ---
ASSUMED CARE OF PATIENT AT 0715, PATIENT ALERT AND ORIENTED X 4. PATIENT UP AD LINDA, AMBULATES IN HALLWAY WITH IV POLE. PATIENT DENIES PAIN THIS SHIFT. PATIENT HAS HAD NO N/V THIS SHIFT. PATIENT HAS LEFT FOREARM IV WITH NS AT 100CC/HR, AND HAS RECEIVED FLAGYL IVPB THIS SHIFT. PATIENT WILL BE NPO AFTER MIDNIGHT FOR ULTRASOUND.
[2018-10-12 19:55] VITALS: BP 126/90
--- NOTE | 2018-10-13 04:39 | NUR ---
Assumed pt care at 1900.Pt A/OX4,VSS. Up ad hue with IV pole without any problems, Denies pain on assessment. Voiding without difficulty and still hasn't passed out the video capsule.Denies any N/V. Has been NPO since midnight for Abd US. IVF fluids infusing without a problem via LFA PIV.Resting quietly at this time with no distress noted, 02 on @2L/NC. Call light/personal items within reach,will continue to monitor pt.
[2018-10-13 07:02] LABS: ALBUMIN 2.7 g/dL (3.4-5.0); DIRECT BILIRUBIN < 0.1 mg/dL (<0.1-0.3); SGOT 20 U/L (15-37); SGPT 54 U/L (30-65); TOTAL BILIRUBIN 0.2 mg/dL (<0.1-1.0); TOTAL PROTEIN 5.3 g/dL (6.4-8.2)
[2018-10-13 08:00] VITALS: BP 122/69
--- NOTE | 2018-10-13 10:19 | NUR ---
DISCHARGE NOTE: SW reviewed chart and spoke with nursing. Pt is medically stable for discharge home today. Discharge orders/summary completed. No SW needs identified at this time, but is available to assist should needs arise.
[2018-10-13] MEDS ORDERED: PREDNISONE 20 M20 MG PO (11:01)
[2018-10-13 11:54] VITALS: BP 126/90
--- NOTE | 2018-10-13 12:48 | NUR ---
PATIENT CARE WAS ASSUMED AT 0715.PATIENT IS ALERT AND ORIENTED X4.PATIENT IS ABLE TO AMBULATE ON HER OWN.IV IS INTACT AND FLUIDS ARE INFUSING.PATIENT HAS NO COMPLAINS OF PAIN AT THIS TIME.CALL LIGHT, PHONE AND PERSONAL BELONGINGS ARE WITHIN REACH.
--- NOTE | 2018-10-13 13:42 | NUR ---
PATIENT WAS DISCHARGED TO GO HOME WITH SELF CARE.D/C PAPERWORK WAS GIVEN TO PATIENT.SCRIPT FOR PATIENT WAS GIVEN WITH EDUCATION.IV WAS TAKEN OUT GAUZE AND COBAND WAS PLACED.PATIENT HAS A FAMILY FRIEND TO TAKE HER HOME.PATIENT WAS TAKEN TO CAR BY TRANSPORT VIA W/C.
--- NOTE | 2018-10-14 08:18 | P ---
[facility] [place] [address] PROCEDURE REPORT Name: KAMLA MATHEWS Room #: 223-P [facility] IN ..#: [id number] Admission: 10/09/18 ������������������ Attend Phys: Angel Marion MD Discharge: 10/13/18 ������������������ Date of : 53 Report #: [id number] THIS REPORT FOR: //name// CC: FAM unknown Karla Nellie Marion MD DATE OF SERVICE: 10/11/2018 PROCEDURE PERFORMED: Upper endoscopy with small bowel enteroscopy and biopsies. HISTORY OF PRESENT ILLNESS: The patient is a 63-year-old female with a complex history of possible Crohn's disease or possible ischemic changes. She has had several hospitalizations. She was transferred from [facility] again with abdominal pain, nausea and vomiting. She has undergone an EGD and colonoscopy recently. She has had several CT scans as well as a CT enterography just recently on 09/29/2018 showing abnormal thickening of the gastric antrum, abnormal wall thickening in the first and second portion of the duodenum, thickening of small bowel loops in the left lower quadrant as well. 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 She actually underwent a dissolvable PillCam in order to potentially have an M2 capsule done as an outpatient. The PillCam did pass the pelvis, possibly within the inferior cecum. This was read on 10/02/2018. DESCRIPTION OF PROCEDURE: The risks and benefits of the procedure were explained to the patient and those risks including but not limited to bleeding, perforation, the risk of sedation and she understood these risks and gave informed consent. Sedation was given using propofol per Anesthesia. Next, using a pediatric Olympus colonoscope, the scope was placed in the patient's mouth and advanced under direct vision through the esophagus, stomach and into the duodenum. I was able to advance the scope well into the jejunum, past 140 cm. Close examination of the jejunum and duodenum showed no abnormalities. I saw no evidence of ulcerations, any thickening or stenosis. I did obtain several biopsies to rule out the possibility of celiac sprue. The pylorus was normal and patent. Overall, the gastric mucosa was normal. On retroflexion, a small hiatal hernia was noted. Overall, the esophagus was normal and the GE junction was normal. The scope was then withdrawn and the procedure terminated. The patient tolerated the procedure well. IMPRESSION: 1. Small hiatal hernia. 2. Otherwise, normal esophagogastroduodenoscopy with small bowel enteroscopy well into the jejunum. [address] [address] PROCEDURE REPORT Name: KAMLA MATHEWS Room #: 223-P [facility]#: [id number] Admission: 10/09/18 ������������������ Attend Phys: Angel Marion MD Discharge: 10/13/18 ������������������ Date of : 53 Report #: [id number] RECOMMENDATIONS: 1. Await biopsy results. 2. I would recommend proceeding with an M2 capsule. 3. Further evaluation of abnormal CT findings. Thank you for allowing me to participate in her care. ��������������������������������������������� <ELECTRONICALLY SIGNED> ���������������������������������������� By: Arnoldo Andre MD ��������������������������������������������� 10/14/18 0818 1233 [id number] Arnoldo Andre MD /nt
== END 2018-10-13 13:16 | disposition home or self-care (01) | DRG 377 ==
LOC: 4E 13:13 → SICU 16:07 → 4E 16:07 → SICU 10-10 08:39
PROVIDERS: Internal Medicine Gastroenterology; Nurse Practitioner; ADMIT Hospitalist
PROC: 0DB88ZX Excision of Small Intestine, Via Natural or Artificial Opening Endoscopic, Diagnostic (ICD-10-PCS; principal; 2018-10-11)
DX: K28.4 Chronic or unspecified gastrojejunal ulcer with hemorrhage (principal); J96.21 Acute and chronic respiratory failure with hypoxia; N17.9 Acute kidney failure, unspecified; K56.699 Other intestinal obstruction unspecified as to partial versus complete obstruction; K50.90 Crohn's disease, unspecified, without complications; K44.9 Diaphragmatic hernia without obstruction or gangrene; K29.71 Gastritis, unspecified, with bleeding; E03.9 Hypothyroidism, unspecified; J44.9 Chronic obstructive pulmonary disease, unspecified; E78.5 Hyperlipidemia, unspecified; F41.9 Anxiety disorder, unspecified; G89.4 Chronic pain syndrome; I10 Essential (primary) hypertension; K20.9 Esophagitis, unspecified; R59.1 Generalized enlarged lymph nodes; K31.84 Gastroparesis; Z87.442 Personal history of urinary calculi; Z86.010 Personal history of colon polyps; Z88.6 Allergy status to analgesic agent; Z88.8 Allergy status to other drugs, medicaments and biological substances; Z90.710 Acquired absence of both cervix and uterus; Z90.49 Acquired absence of other specified parts of digestive tract; Z87.891 Personal history of nicotine dependence
CPT/HCPCS: 10783; 15002; 62110; 62900; 70005